=== PATIENT | male | born 1970 | race Two or more races ===

== ENCOUNTER 2019-04-07 14:49 | Inpatient (IN) | payer OTHER ==
[~2019-04-07] VITALS: Ht 177.8 cm; Wt 90.7 kg
[2019-05-12] MEDS ORDERED: NORVASC10 MG (14:28)
[2019-05-12] MEDS ORDERED: COZAAR100 MG (14:28)
[2019-05-21] MEDS ORDERED: OMEPRAZOLE20 MG PO (10:51)
[2019-05-21] MEDS ORDERED: INTESTINEX680 M1 PO (10:51)
[2019-05-21] MEDS ORDERED: PERCOCET 5-3251 EACH PO (10:51)
== END 2019-05-21 12:38 | disposition home or self-care (01) | DRG 330 ==
LOC: SURG 05-11 11:00 → O/R 05-18 06:40 → SURG 05-18 06:40
PROVIDERS: ADMIT Surgery
PROC: 0DJD8ZZ Inspection of Lower Intestinal Tract, Via Natural or Artificial Opening Endoscopic (ICD-10-PCS; 2019-05-18)
PROC: 0DTN4ZZ Resection of Sigmoid Colon, Percutaneous Endoscopic Approach (ICD-10-PCS; principal; 2019-05-18 07:00)
DX: C19 Malignant neoplasm of rectosigmoid junction (principal); K57.20 Diverticulitis of large intestine with perforation and abscess without bleeding; R10.32 Left lower quadrant pain; I10 Essential (primary) hypertension; E87.6 Hypokalemia

== ENCOUNTER 2019-05-16 06:00 | Day surgery (SDC) | payer OTHER ==
[~2019-05-16 06:00] MED LIST: COZAAR100 MG; NORVASC10 MG
== END 2019-05-16 09:00 | disposition home or self-care (01) ==
LOC: AMB-ENDOS 06:00
DX: D12.4 Benign neoplasm of descending colon (principal)

== ENCOUNTER 2020-06-25 10:12 | Day surgery (SDC) | payer OTHER ==
[~2020-06-25 10:12] MED LIST changes: +INTESTINEX680 M1 PO; +OMEPRAZOLE20 MG PO; +PERCOCET 5-3251 EACH PO
== END 2020-06-25 14:25 | disposition home or self-care (01) ==
LOC: AMB-ENDOS 10:12
PROVIDERS: ATTEND Surgery
DX: K62.89 Other specified diseases of anus and rectum (principal); Z20.828 Contact with and (suspected) exposure to other viral communicable diseases; K64.8 Other hemorrhoids